=== PATIENT | male | born 1955 | race Caucasian/White ===

== ENCOUNTER → 2017-03-04 | Outpatient (CLI) | payer BC ==
[~2017-03-04] MED LIST: ASPIRIN CHILDRE81 MG PO; ATENOLOL100 MG PO; POTASSIUM CHLO20 ME2 PO; PRAVACHOL40 MG PO; TRICOR145 MG PO; ZYLOPRIM 300MG300 MG PO
[2017-03-04 08:04] LABS: HEMOGLOBIN 13.5 g/dL (14.1-18.0); LYMPH # 1.6 K/mm3 (0.7-4.5); LYMPH % 30.7 % (10-50)
[2017-03-04 08:23] LABS: URINE BILIRUBIN - DIPSTICK NEGATIVE (NEG); URINE BLOOD TRACE-INTACT (NEG)
[2017-03-04 08:56] LABS: URINE SQUAMOUS CELLS OCC #/hpf (OCC)
[2017-03-04 10:10] LABS: BUN 20 mg/dL (7-18)
[2017-03-04 10:13] LABS: GFR (ESTIMATED) 47 ML/MIN (>60)
[2017-03-05 06:41] LABS: Creatinine, Urine 85.8 mg/dL (Not Estab.); Microalbumin, Urine 234.4 ug/mL (Not Estab.)
[2017-03-07 06:37] LABS: Vitamin D, 25-Hydroxy 27.3 ng/mL (30.0-100.0)
== END ==
LOC: LAB 07:51
PROVIDERS: Family Medicine
DX: R53.83 Other fatigue (principal); E11.9 Type 2 diabetes mellitus without complications; E78.2 Mixed hyperlipidemia; M1A.9XX0 Chronic gout, unspecified, without tophus (tophi)

== ENCOUNTER → 2017-05-01 | Outpatient (CLI) | payer BC ==
--- NOTE | 2017-05-01 17:23 | RADIOLOGY REPORT PS360 ---
KNEE-3 VIEWS-LT HISTORY: LEFT KNEE PAIN ORDERING PHYSICIAN: Jesús Davis MD PATIENT AGE: 61 years COMPARISON: None FINDINGS: There are moderate osteoarthritic changes of the medial compartment and patellofemoral joint. Small osteophytes at the tibial spines and medial compartment and patella. Calcific density is present along the posterior aspect of the knee joint may be due to loose intra-articular body. Vascular calcifications are present. Increased soft tissue density is present in the suprapatellar region consistent with knee joint effusion IMPRESSION: Osteoarthritic change with knee joint effusion
--- NOTE | 2017-05-01 17:23 | RADIOLOGY REPORT PS360 ---
KNEE-3 VIEWS-LT HISTORY: LEFT KNEE PAIN ORDERING PHYSICIAN: Jesús aDvis MD PATIENT AGE: 61 years COMPARISON: None FINDINGS: There are moderate osteoarthritic changes of the medial compartment and patellofemoral joint. Small osteophytes at the tibial spines and medial compartment and patella. Calcific density is present along the posterior aspect of the knee joint may be due to loose intra-articular body. Vascular calcifications are present. Increased soft tissue density is present in the suprapatellar region consistent with knee joint effusion IMPRESSION: Osteoarthritic change with knee joint effusion
== END ==
LOC: RAD 16:25
DX: M25.562 Pain in left knee (principal)